=== PATIENT | female | born 1990 | race Caucasian/White ===

== ENCOUNTER 2019-10-06 09:54 | Emergency (ER) | payer BC ==
[~2019-10-06] VITALS: Ht 167.6 cm; Wt 125.0 kg
[2019-10-06 10:01] VITALS: Ht 167.6 cm; Wt 125.0 kg
[2019-10-06] MEDS ORDERED: OMEPRAZOLE20 M1 PO (10:02)
[2019-10-06] MEDS ORDERED: CELEXA40 MG PO (10:03)
[2019-10-06] MEDS ORDERED: PRENAVITE1 TAB PO (10:03)
[2019-10-06 10:33] LABS: ANION GAP 11.9 mmol/L (8-16); CALCIUM 8.2 mg/dL (8.5-10.1); CARBON DIOXIDE 25.8 mmol/L (21.0-32.0); POTASSIUM - SERUM 3.7 mmol/L (3.5-5.1)
[2019-10-06 10:38] LABS: HCG SERUM POSITIVE (NEGATIVE)
[2019-10-06 10:42] LABS: HEMOGLOBIN 13.6 g/dL (12-16); LYMPHOCYTES 21.4 % (15-50); MCH 29.7 pg (26.0-34.0); MCV 87.3 fL (80.0-100.0); MEAN PLATELET VOLUME 10.3 fL (7.4-10.4); NEUTROPHILS 70.6 % (40-80); RBC 4.58 10x6/uL (4.00-5.40); RDW 13.1 % (11.5-14.5); WBC 5.7 10x3/uL (4.8-10.8)
[2019-10-06 10:43] LABS: PLATELET COUNT 208 10x3/uL (130-400)
[2019-10-06 10:49] LABS: ALBUMIN 3.5 g/dL (3.4-5.0); BILIRUBIN - TOTAL 0.37 mg/dL (0.2-1.3); PROTEIN - SERUM 6.8 g/dL (6.4-8.2)
[2019-10-06 11:10] LABS: BILIRUBIN NEGATIVE (NEGATIVE); GLUCOSE 500 mg/dL (NEGATIVE); KETONE SMALL mg/dL (NEGATIVE); NITRITE NEGATIVE (NEGATIVE); SPECIFIC GRAVITY 1.015 (1.005-1.020); UROBILINOGEN NORMAL (NORMAL)
[2019-10-06 11:11] LABS: BACTERIA FEW /hpf (NEGATIVE); EPITHELIAL CELLS OCC /hpf (0-5); RED CELLS - URINE >50 /hpf (0-5); WHITE CELLS - URINE 0-5 /hpf (NEGATIVE)
[2019-10-06] MEDS ORDERED: MACROBID100 MG PO (11:54)
[2019-10-06 12:10] VITALS: BP 139/87
== END 2019-10-06 12:14 | disposition home or self-care (01) ==
LOC: D.ER 09:54
PROVIDERS: Family Medicine
DX: N93.9 Abnormal uterine and vaginal bleeding, unspecified (principal); I10 Essential (primary) hypertension; K21.9 Gastro-esophageal reflux disease without esophagitis